=== PATIENT | male | born 1950 | race Caucasian/White ===

== ENCOUNTER 2020-04-01 08:51 | Outpatient (CLI) | payer OTHER, SELFPAY ==
[2020-04-01 09:07] LABS: Basophils Absolute Auto 0.1 K/mm3 (0.0-0.1); Eosinophils Absolute Auto 0.2 K/mm3 (0-0.3); Eosinophils Percent Auto 3.4 % (0-4.4); Hematocrit 44.3 % (42.0-52.0); Hemoglobin 14.9 g/dL (14.0-18.0); Immature Granulocyte Absolute 0.02 K/mm3 (0.00-0.031); Immature Granulocyte Percent A 0.3 % (0-0.5); Lymphocytes Absolute Auto 2.17 K/mm3 (0.9-3.2); Lymphocytes Percent Auto 30.8 % (18.3-44.2); Mean Corpuscular HGB Conc 33.6 g/dl (32-36); Mean Corpuscular Hemoglobin 33.4 pg (26-34); Mean Corpuscular Volume 99.3 fl (80-100); Mean Platelet Volume 9.7 fl (7.4-10.4); Monocytes Absolute Auto 0.8 K/mm3 (0.1-0.6); Monocytes Percent Auto 11.9 % (2.6-8.5); Neutrophils Absolute Auto 3.7 K/mm3 (1.3-6.7); Neutrophils Percent Auto 52.6 % (45.5-73.1); Platelet Count Result 171 k/mm3 (150-375); Red Blood Count 4.46 M/mm3 (4.6-6.20); Red Cell Distribution Width 13.6 % (11.5-14.5)
[2020-04-01 09:14] LABS: Add Urine Microscopic? NO; Appearance Urine Clear (Clear); Bilirubin Urine Negative (Negative); Blood Urine Negative (Negative); Color Urine Yellow (Yellow); Glucose Urine UA Negative (Negative); Ketones Urine Negative (Negative); Leukocyte Esterase Ur Negative LEU/UL (NEGATIVE); Nitrate Urine Negative (Negative); Protein Urine Negative (Negative); RBC Urine 0-2 /hpf (0-2); Urobilinogen Urine Negative mg/dL (<2.0); WBC Urine 0-3 /hpf (0-3)
[2020-04-01 09:21] LABS: Alanine Aminotransferase 18 U/L (4-50); Albumin Level 4.2 g/dL (3.5-5.1); Alkaline Phosphatase 80 U/L (38-126); Anion Gap 7 mmol/L (8-16); Aspartate Amino Transferase 25 U/L (17-59); Bilirubin,Total 0.5 mg/dL (0.2-1.3); Blood Urea Nitrogen 13 mg/dL (9-20); Calcium 8.9 mg/dL (8.4-10.2); Carbon Dioxide 28 mmol/L (22-30); Chloride 102 mmol/L (98-107); Estimated Glomerular Filt Rate > 60; Glucose 100 mg/dL (75-110); Sodium 137 mmol/L (137-145)
[2020-04-01 09:51] LABS: Prostate Specific Antigen 3.4 ng/mL (< OR = 4.0)
== END 2020-04-01 08:52 | disposition home or self-care (01) ==
PROVIDERS: PCP Internal Medicine; Visit Provider Internal Medicine
DX: Z00.00 Encounter for general adult medical examination without abnormal findings (principal); I48.0 Paroxysmal atrial fibrillation; Z72.0 Tobacco use; F10.10 Alcohol abuse, uncomplicated; Z85.51 Personal history of malignant neoplasm of bladder; Z12.5 Encounter for screening for malignant neoplasm of prostate
CPT/HCPCS: 36415; 80053; 81003; 84153; 84443; 85025; G0103

== ENCOUNTER 2020-09-28 17:30 | Emergency (ER) | payer OTHER, SELFPAY ==
--- NOTE | ~2020-09-28 | CT_ITS ---
EXAMINATION: CT abdomen pelvis w con EXAM DATE: 09/28/2020 18:32 INDICATION: Lower abdominal pain TECHNIQUE: Spiral CT of the abdomen and pelvis was performed without contrast. Axial, coronal and s agittal images were reviewed. The dose-length product (DLP) for this examination was 276.67 mGy-cm. The exposure was tailored according to patient size (auto mA exposure control), and iterative recons truction (ASIR) was used as additional dose reduction technique. Comparison is made to prior examinat ion from 08/24/2019. FINDINGS: Patients lower abdominal fusiform abdominal aortic aneurysm has increased in size from 4.2 cm one year ago to 4.9 cm today, and there is hazy fat stranding anterior to this. There is a small d ensity, could be blush of contrast within this hazy fat stranding measuring 5 mm (this has been indic ated on axial image 88), possible small amount of extravasation. Overall appearance is concerning for early or impending rupture. The origin of the CARLYN which was near this is no longer well identified o r enhancing for a couple of centimeters. I discussed these findings with Tish Delcid MD at 09/28/19 21 18:40 BARK PRESS OPERATOR. Severe bilateral iliac ectasia. The liver, spleen, adrenal glands and pancreas are unremarkable. Gal lbladder is unremarkable. No biliary obstruction. Portal and splenic veins are patent. Kidneys enh ance symmetrically. There is no hydronephrosis. Mild prostatomegaly. The bladder is unremarkable. There is no retroperitoneal or pelvic lymphadenopathy. Small umbilical fat-containing hernia. The appendix is normal. There is mild sigmoid colonic diverticulosis. There is no adjacent inflammat ory change to suggest diverticulitis. The stomach and small bowel are unremarkable. There is expecte d amount of colonic stool. No free intraperitoneal gas. The heart is normal in size. There are n o pericardial or pleural effusions. The lung bases are unremarkable. Findings consistent with chron ic right hip avascular necrosis, without collapse of the femoral head, unchanged compared to prior st udy. IMPRESSION: 1. Infrarenal 4.9 cm infrarenal abdominal aortic aneurysm with interval increase in size, and other findings concerning for early or impending rupture. 2. Origin of CARLYN poorly enhancing, distinguished from fat stranding at its origin. 3. Moderate sigmoid diverticulosis. 4. Right hip osteonecrosis. Reviewed, dictated and finalized at location A. PRESS OPERATOR IMPRESSION: 1. Infrarenal 4.9 cm infrarenal abdominal aortic aneurysm with interval increa se in size, and other findings concerning for early or impending rupture. 2. Origin of CARLYN poorly enhancing, distinguished from fat stranding at its sumeet gin. 3. Moderate sigmoid diverticulosis. 4. Right hip osteonecrosis.
[2020-09-28 17:32] VITALS: BP 124/84; PULSE 93; RESP 18; TEMP 36.9; O2SAT 100
[2020-09-28 17:49] LABS: Basophils Absolute Auto 0.1 K/mm3 (0.0-0.1); Basophils Percent Auto 0.4 % (0.2-1.2); Eosinophils Absolute Auto 0.1 K/mm3 (0-0.3); Eosinophils Percent Auto 1.2 % (0-4.4); Hematocrit 51.2 % (42.0-52.0); Hemoglobin 16.7 g/dL (14.0-18.0); Immature Granulocyte Absolute 0.04 K/mm3 (0.00-0.031); Immature Granulocyte Percent A 0.3 % (0-0.5); Lymphocytes Absolute Auto 2.33 K/mm3 (0.9-3.2); Lymphocytes Percent Auto 19.4 % (18.3-44.2); Mean Corpuscular HGB Conc 32.6 g/dl (32-36); Mean Corpuscular Hemoglobin 32.6 pg (26-34); Mean Platelet Volume 9.9 fl (7.4-10.4); Monocytes Absolute Auto 1.4 K/mm3 (0.1-0.6); Monocytes Percent Auto 11.8 % (2.6-8.5); Neutrophils Percent Auto 66.9 % (45.5-73.1); Platelet Count Result 184 k/mm3 (150-375); Red Blood Count 5.12 M/mm3 (4.6-6.20); Red Cell Distribution Width 13.2 % (11.5-14.5)
[2020-09-28 18:01] LABS: Alanine Aminotransferase 18 U/L (4-50); Albumin Level 4.8 g/dL (3.5-5.1); Alkaline Phosphatase 90 U/L (38-126); Anion Gap 6 mmol/L (8-16); Aspartate Amino Transferase 26 U/L (17-59); Bilirubin,Total 0.8 mg/dL (0.2-1.3); Blood Urea Nitrogen 15 mg/dL (9-20); Calcium 9.6 mg/dL (8.4-10.2); Carbon Dioxide 33 mmol/L (22-30); Chloride 99 mmol/L (98-107); Estimated CRCL calculation 77 ml/min; Estimated Glomerular Filt Rate > 60; Glucose 106 mg/dL (75-110); Lipase 41 U/L (23-300); Potassium 3.9 mmol/L (3.4-5.0); Sodium 138 mmol/L (137-145)
[2020-09-28 18:01] LABS: Add Urine Microscopic? YES; Appearance Urine Clear (Clear); Bilirubin Urine Negative (Negative); Blood Urine Negative (Negative); Color Urine Yellow (Yellow); Glucose Urine UA Negative (Negative); Ketones Urine Negative (Negative); Leukocyte Esterase Ur Negative LEU/UL (Negative); Mucus Urine Few /lpf; Nitrate Urine Negative (Negative); Protein Urine 1+ mg/dL (Negative); Specific Grav Ur 1.016 (1.001-1.035); WBC Urine 0-3 /hpf
[2020-09-28] MEDS: ONDANSETRON INJ 4 MG/2 ML VIAL IV PUSH (18:55)
[2020-09-28 18:56] VITALS: BP 119/96; PULSE 90; RESP 20; O2SAT 96
[2020-09-28] MEDS: MORPHINE SULFATE (*CRX) 4 MG/ML INJ IV PUSH (18:56)
--- NOTE | 2020-09-28 19:12 | ED.ABDPAIN ---
HPI - Abdominal Pain General Chief Complaint: Abdominal Pain Stated Complaint: abd pain Time Seen by Provider: 09/28/20 17:49 Source: patient and family Mode of arrival: ambulatory Limitations: no limitations History of Present Illness HPI narrative: Patient is 70 years old white male presents with lower abdominal pain mainly at the left side started over 24 hours ago, constant, associated with intermittent nausea, denies any aggravating or relieving factors or radiation. Patient denies any fever, chills, vomiting, diarrhea, constipation, urinary symptoms, chest pain or back pain. History of hypertension, atrial fibrillation on Xarelto. Patient is a smoker and drinks daily. History of abdominal hernia repair years ago. Related Data Home Medications Medication Instructions Recorded Confirmed fluticasone propionate INTRANASAL 08/24/19 Allergies Allergy/AdvReac Type Severity Reaction Status Date / Time No Known Allergies Allergy Verified 04/01/20 07:59 Review of Systems Review of Systems: Narrative: CONSTITUTIONAL: Denies fever, chills, or sweats. EYES: Denies visual changes, redness, or discharge. ENT: Denies rhinorrhea, congestion, sore throat, or otalgia. CARDIOVASCULAR: Denies chest pain, palpitations, or edema. RESPIRATORY: Denies cough or dyspnea. GASTROINTESTINAL: Denies abdominal pain, nausea, vomiting, or diarrhea. GENITOURINARY: Denies dysuria or hematuria. SKIN: Denies rash or itching. MUSCULOSKELETAL: Denies back pain, joint pain, or myalgia. NEUROLOGIC: Denies headache, numbness, or weakness. PSYCHIATRIC: Denies anxiety or depression. [facility] Past Medical History Medical History AAA (abdominal aortic aneurysm) Atrial fibrillation Bladder cancer Hypertension Surgical History Surgical History History of cystoscopy Family History Family History Father Family history of malignant neoplasm Social History Social History Smoking packs per day: 1 Smoking cigarettes per day: 20.0 Smoking status: Current every day smoker Tobacco type: cigarettes Alcohol intake: current Gender identity (if verbalized by the patient): Male Exam Narrative: Exam Narrative: General appearance: Well-developed, well-nourished Skin: Normal color Head: Normocephalic, nontraumatic Eyes: Clear conjunctiva ENT: Oropharynx normal, ears normal, nose normal Neck: Supple, nontender Chest and respiratory: Airway patent, no respiratory distress, no accessory muscle use Heart: Regular rate/rhythm Abdomen: Soft, mild tenderness left lower quadrant with deep palpation, no guarding or rebound, no organomegaly, quiet bowel sounds Vascular: Normal peripheral pulses, normal capillary refill. Musculoskeletal: Normal range of motion, nontender back Neurologic: Alert and oriented ?3, ASSISTANT TO THE PRESIDENT is normal as tested, no gross motor deficit Course Course Emergency Course: Stable Consultations Consultation #1: Dr. Langley, vascular surgeon at [facility] accepted transfer to the ED. Date: 09/28/20 Time: 19:43 Consultation #2: Dr. Weston, emergency room physician at [facility], accepted transfer to the ED Date: 09/28/20 Time: 19:43 Vital Signs Vital signs: Vital Signs Temperature 36.9 C 09/28/20 17:32 Pulse Rate 93 09/28/20 17:32 Respiratory Rate 18 09/28/20 17:32 Blood Pressure 124/84 09/28/20 17:32 Pulse Oximetry 100 09/28/20 17:32 Temperature 36.9 C 09/28/20 17:32 Pulse Rate 90 09/28/20 18:56 Respiratory Rate
[2020-09-28 20:11] VITALS: BP 102/71; PULSE 90; RESP 14; TEMP 36.7; O2SAT 96
== END 2020-09-28 20:14 | disposition short-term general hospital (02) ==
PROVIDERS: Emergency Provider Emergency Medicine; PCP Internal Medicine
DX: I71.4 Abdominal aortic aneurysm, without rupture (principal); I48.91 Unspecified atrial fibrillation; F17.210 Nicotine dependence, cigarettes, uncomplicated; Z79.01 Long term (current) use of anticoagulants; I10 Essential (primary) hypertension; Z85.51 Personal history of malignant neoplasm of bladder; M87.9 Osteonecrosis, unspecified; K57.30 Diverticulosis of large intestine without perforation or abscess without bleeding
CPT/HCPCS: 36415; 74177; 80053; 81001; 83690; 85025; 96374; 96375; 99291; J2270; J2405; Q9967

== ENCOUNTER → 2021-04-02 12:44 | Outpatient (CLI) | payer OTHER, SELFPAY ==
--- NOTE | ~2021-04-02 | MR_ITS ---
EXAMINATION: MR pelvis wo/w con DATE: 04/02/2021 14:38 INDICATION: Malignant neoplasm of the prostate TECHNIQUE: Magnetic resonance imaging (MRI) of the pelvis was performed without and with 15 mL Multih ance intravenous contrast. Fullfield sequences of the pelvis included axial and coronal T2-weighted S S FSE, axial, sagittal and coronal 2D FIESTA, axial 2D FIESTA FS, axial SSFSE-IR TIFFANY, axial dual-echo T1-weighted FSPGR, axial and coronal T1 weighted LAVA, 3D axial T2 Cube, axial diffusion-weighted SE with apparent diffusion coefficient (ADC) maps. Postcontrast sequences included a time course axial T1-weighted LAVA and sagittal and coronal T1-weighted LAVA. COMPARISON: 09/28/2020 FINDINGS: Prostate measures 5.2 x 3.2 cm in maximal transaxial dimensions and 2.6 cm in craniocaudal height. Ho mogeneous T2 hyperintense likely hydrogel positioned between the prostate and anterior wall of the re ctum and measuring 5.5 cm craniocaudally and 3.0 cm Left to right and 1.2 cm in maximal AP thickness. Bladder is normal with no wall thickening. Visualized bowels are unremarkable with no obstruction. F usiform infrarenal abdominal aortic aneurysm measuring up to 4.3 x 4.2 cm with interval aortobiiliac stent grafting. No pathologically enlarged pelvic or inguinal lymphadenopathy. Minimal ascites in the deep pelvis. Chronic avascular necrosis at the bilateral femoral heads more extensive on the right. Small right hip joint effusion. Moderate lumbar spondylosis. No bone lesions suspicious for metastati c disease. IMPRESSION: 1. No evident metastatic disease in the pelvis or lower abdomen. 2. Interval aortobiiliac stenting of a now 4.3 x 4.2 cm infrarenal abdominal aortic aneurysm. 3. Minimal ascites in the deep pelvis. 4. Avascular necrosis at the bilateral hips, right more extensive than left, with small right hip izaiah nt effusion. Reviewed, dictated and finalized at location B. IMPRESSION: 1. No evident metastatic disease in the pelvis or lower abdomen. 2. Interval aortobiiliac stenting of a now 4.3 x 4.2 cm infrarenal abdominal ao rtic aneurysm. 3. Minimal ascites in the deep pelvis. 4. Avascular necrosis at the bilateral hips, right more extensive than left, wi th small right hip joint effusion.
[2021-04-02 13:44] LABS: Estimated Glomerular Filt Rate > 60
== END ==
PROVIDERS: Visit Provider Radiology Radiation Oncology
DX: C61 Malignant neoplasm of prostate (principal)
CPT/HCPCS: 72197; A9577

== ENCOUNTER 2021-09-08 09:07 | Outpatient (CLI) | payer OTHER, SELFPAY ==
--- NOTE | ~2021-09-08 | CT_ITS ---
EXAMINATION: CT lung screening DATE: 09/08/2021 09:23 INDICATION: Z72.0 - Tobacco use TECHNIQUE: Computed tomography (CT) of the chest was performed without intravenous contrast. Addition al 3D reconstructions utilizing coronal maximum intensity projection (MIP) were performed. Automated exposure control and iterative reconstruction technique were employed. The dose-length product was 92 .31 mGy-cm. COMPARISON: 08/24/2019 FINDINGS: Mild emphysema. No suspicious pulmonary nodules, pneumonia, pulmonary edema or other pulmonary infilt rates. No pleural effusion. Heart size is normal. Atherosclerotic coronary artery calcification is. T here also atherosclerotic calcific lesion along the normal caliber thoracic aorta. No pathologically enlarged thoracic lymphadenopathy. Severe disc height loss with degenerative endplate changes at C7-T 1. Mild upper thoracic dextrocurvature. 4 mm retrolisthesis L1 on L2. Prominent Schmorl's node along the inferior endplate of L2. IMPRESSION: 1. Lung-RADS category 1: Negative. Continue annual screening with noncontrast low-dose chest CT in 12 months. Reviewed, dictated and finalized at location A. TRONICS TESTER IMPRESSION: 1. Lung-RADS category 1: Negative. Continue annual screening with noncontrast l ow-dose chest CT in 12 months.
== END 2021-09-08 09:08 | disposition home or self-care (01) ==
PROVIDERS: PCP Internal Medicine; Visit Provider Internal Medicine
DX: Z12.2 Encounter for screening for malignant neoplasm of respiratory organs (principal); Z87.891 Personal history of nicotine dependence
CPT/HCPCS: 71271

== ENCOUNTER → 2021-09-20 09:40 | Outpatient (CLI) | payer OTHER, SELFPAY ==
--- NOTE | ~2021-09-20 | XR_ITS ---
EXAMINATION: XR hip BI 2V w AP pelvis DATE: 09/20/2021 10:12 INDICATION: Pain in unspecified hip. TECHNIQUE: An anteroposterior view of the pelvis and 2 views of each hip were obtained. COMPARISON: CT abdomen and pelvis 09/28/2020 FINDINGS: There is lumbar levocurvature and severe spondylosis. No fracture. There is sclerosis in th e femoral heads, right worse than left, consistent with osteonecrosis. There is mild osteoarthritis o f the hips. There is a stent graft in abdominal aorta and the common iliac arteries. Surgical clips o verlie the abdomen and pelvis. IMPRESSION: 1. Osteonecrosis of the femoral heads, right worse than left. 2. Mild osteoarthritis of the hips. Reviewed, dictated and finalized at location E. NICAL SUPPORT DIRECTOR
== END ==
PROVIDERS: PCP Internal Medicine; Visit Provider Internal Medicine
DX: M16.0 Bilateral primary osteoarthritis of hip (principal)
CPT/HCPCS: 73521

== ENCOUNTER → 2021-11-13 16:46 | Outpatient (CLI) | payer OTHER, SELFPAY ==
--- NOTE | ~2021-11-13 | MR_ITS ---
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 Sequences included full-field axial PD-weighted FS FSE and T1-weighted FSE, coronal of the pelvi s with PD-weighted FS FSE, T2-weighted FSE and T1-weighted FSE, small field of view of the right hip with axial PD-weighted FS FSE, sagittal PD-weighted FS FSE, coronal PD-weighted FS FSE and coronal T2 weighted FSE. Additional radial T1-weighted FGR oriented orthogonal to the acetabular rim were obt ained for evaluation of the labrum. COMPARISON: None FINDINGS: Bones/labrum/cartilage: Alignment is normal. No fracture or pathologic marrow replacing process. Large region of osteonecrosi s along the superior and anterosuperior aspect of the right femoral head which measures approximately 2.7 cm medial to lateral and 4 cm anterior posteriorly. No evident collapse of the articular surface or linear fluid signal intensity along the margins of the lesion to suggest an unstable fragment. Mi ld osteoarthritis at the right hip with mild nonuniform joint space narrowing with partial thickness cartilage loss with prominent posteriorly and anterosuperiorly. The anterior to posterior superior la buddy is diminutive in places partially replaced with marginal osteophytes along the acetabular rim. S mall shallow tear at the base of the superolateral labrum. On the larger field of view images a small region of osteonecrosis is seen along the anteromedial aspect of the left femoral head. Fluid: Minimal right hip joint effusion. Physiologic amount fluid in the left hip joint. No bursitis or othe r abnormal fluid collections. Soft tissues: No asymmetric muscular atrophy or abnormal muscle signal in the pelvis and visualized proximal thighs . The iliopsoas, gluteal and proximal hamstring tendons are normal. Small fat-containing left inguina l hernia. Limited evaluation of visceral organs of the pelvis is unremarkable. No pathologically enl arged pelvic/inguinal lymphadenopathy. IMPRESSION: 1. Relatively large region of osteonecrosis involving the superior and anterosuperior aspect of the r ight femoral head with significant smaller region of osteonecrosis at the anteromedial left femoral h ead. 2. Mild right hip osteoarthritis with small labral tear and more diffuse chronic labral degeneration. 3. Small fat-containing left inguinal hernia. Reviewed, dictated and finalized at location B. IMPRESSION: 1. Relatively large region of osteonecrosis involving the superior and anterosu perior aspect of the right femoral head with significant smaller region of oste onecrosis at the anteromedial left femoral head. 2. Mild right hip osteoarthritis with small labral tear and more diffuse chroni c labral degeneration. 3. Small fat-containing left inguinal hernia.
== END ==
PROVIDERS: PCP Internal Medicine; Visit Provider Orthopaedic Surgery
DX: M87.051 Idiopathic aseptic necrosis of right femur (principal); K44.9 Diaphragmatic hernia without obstruction or gangrene; M16.11 Unilateral primary osteoarthritis, right hip
CPT/HCPCS: 73721

== ENCOUNTER → 2022-06-22 09:28 | Outpatient (CLI) | payer OTHER, SELFPAY ==
--- NOTE | ~2022-06-22 | CT_ITS ---
EXAMINATION: CTA abdomen DATE: 06/22/2022 09:59 INDICATION: Abdominal aortic aneurysm status post endoluminal stent repair TECHNIQUE: Computed tomographic angiography (CTA) of the abdomen was performed with 100 mL Omnipaque- 350 intravenous contrast. Maximum intensity projection 3D-reconstructions of the aorta and other darnell teddy were constructed by the technologist on a separate workstation. The dose-length product (DLP) wa s 414.47 mGy-cm. Automated exposure control and iterative reconstruction technique were employed. COMPARISON: None. FINDINGS: The lung bases are clear. The heart size is normal. Cysts of the liver measure up to 4 mm. The spleen, pancreas, gallbladder, and adrenal glands are normal. The kidneys are unremarkable. No pa thologically enlarged abdominal lymph nodes are identified. There is no free intraperitoneal gas or e vidence of bowel obstruction. There is severe lumbar spondylosis. There is mild stenosis at the origin of the celiac axis. Calcified atherosclerosis is present at the origin of the superior mesenteric artery. The inferior mesenteric artery is unremarkable. There is a 3.4 cm fusiform infrarenal abdominal aortic aneurysm status post aortobiiliac endoluminal stent graft repair. There are single renal arteries bilaterally. There is severe stenosis of the bilateral inter nal iliac arteries. IMPRESSION: 1. 3.4 cm infrarenal abdominal aortic aneurysm status post aortobiiliac endoluminal stent graft love álvarez Reviewed, dictated and finalized at location F. ERIOLOGIST SOIL IMPRESSION: 1. 3.4 cm infrarenal abdominal aortic aneurysm status post aortobiiliac endolum inal stent graft repair.
[2022-06-22 09:44] LABS: Estimated Glomerular Filt Rate > 60
== END ==
PROVIDERS: PCP Internal Medicine; Visit Provider Internal Medicine Cardiovascular Disease
DX: I71.43 Infrarenal abdominal aortic aneurysm, without rupture (principal)
CPT/HCPCS: 74175; Q9967

== ENCOUNTER 2023-01-18 15:22 | Outpatient (CLI) | payer OTHER, SELFPAY ==
--- NOTE | ~2023-01-18 | US_ITS ---
US scrotum doppler INDICATION: Testicular pain TECHNIQUE: Testicular sonogram utilizing grayscale and color Doppler FINDINGS: The testes are normal in size and appearance. No focal lesions are seen. The right testes measures 3.6 x 1.9 x 2.1 cm centimeters, and the left testis measures 3.9 x 1.3 x 2.4 cm cm. There is normal vascular flow to both testes. There is a left varicocele. Small right hydrocele. There is a right epididymal cyst measuring 5 mm. IMPRESSION: 1. Left varicocele. 2: Small right hydrocele. 3: Right epididymal cyst measuring 5 mm. Reviewed, dictated and finalized at location L.
== END 2023-01-18 15:23 | disposition home or self-care (01) ==
PROVIDERS: PCP Family Medicine; Visit Provider Nurse Practitioner Family
DX: N50.819 Testicular pain, unspecified (principal); I86.1 Scrotal varices; N43.3 Hydrocele, unspecified; N50.3 Cyst of epididymis
CPT/HCPCS: 76870; 93976

== ENCOUNTER 2024-05-02 09:56 | Outpatient (CLI) | payer OTHER, SELFPAY ==
--- NOTE | ~2024-05-02 | MR_ITS ---
MRI of the lumbar spine Clinical History: Spondylosis Technique: Axial T2-weighted images, and sagittal T1-weighted, T2-weighted, and and T2 fat-sat images were acquired. Findings: No acute fracture seen. There is minimal grade 1 retrolisthesis of L2 over L3. No suspiciou s bone marrow signal abnormality seen. At L1-L2, there is moderate degenerative disc narrowing. There is minimal disc bulge with moderate fa cet arthropathy. No central canal stenosis. There is minimal right neural foraminal narrowing. Left n eural foramen preserved. At L2-L3, there is moderate degenerative disc narrowing. There is moderate facet arthropathy. No cent ral canal stenosis. There is moderate to advanced right neural foraminal narrowing, and moderate left neural foraminal narrowing. At L3-L4, there is moderate degenerative disc narrowing. There is minimal disc bulge with moderate fa cet arthropathy. No central canal stenosis. There is severe bilateral neural foraminal, right. At L4-L5, there is mild disc bulge with advanced facet arthropathy. No central canal stenosis. There is severe left neural foraminal narrowing, and minimal right neural foraminal narrowing. At L5-S1, there is advanced degenerative disc narrowing. There is minimal disc bulge with mild facet arthropathy. No central canal stenosis. There is moderate to advanced left neural foraminal narrowing , advanced right neural foraminal narrowing. Paravertebral soft tissues are unremarkable. Impression: Advanced degenerative spondylosis, with multilevel significant neural foraminal narrowing, as detaile d above. Minimal grade 1 retrolisthesis of L2 over L3. Reviewed, dictated and finalized at [facility]. Impression: Advanced degenerative spondylosis, with multilevel significant neural foraminal narrowing, as detailed above. Minimal grade 1 retrolisthesis of L2 over L3.
== END 2024-05-02 09:57 | disposition home or self-care (01) ==
PROVIDERS: PCP Neurological Surgery; Visit Provider Nurse Practitioner Family
DX: M47.896 Other spondylosis, lumbar region (principal)
CPT/HCPCS: 72148

== ENCOUNTER 2024-07-27 11:35 | Outpatient (CLI) | payer OTHER, SELFPAY ==
--- NOTE | ~2024-07-27 | XR_ITS ---
AP and lateral views of the right hip Clinical history: Pain Findings: No acute fracture or dislocation is seen.] Upper arthroplasty in place. Soft tissues are un remarkable. Impression: No acute abnormality. Right hip arthroplasty. Reviewed, dictated and finalized at location M. EMIC AFFAIRS ASSISTANT Impression: No acute abnormality. Right hip arthroplasty.
== END 2024-07-27 11:36 | disposition home or self-care (01) ==
LOC: MICIMG 11:36
PROVIDERS: PCP Nurse Practitioner Family; Visit Provider Pain Medicine Pain Medicine
DX: M25.551 Pain in right hip (principal); Z96.641 Presence of right artificial hip joint
CPT/HCPCS: 73502

== ENCOUNTER 2025-02-02 10:02 | Outpatient (CLI) | payer OTHER, SELFPAY ==
--- NOTE | ~2025-02-02 | CT_ITS ---
CT Scan of the Chest without Contrast: Clinical Indication: Lung cancer screening, nicotine dependence Technique: Contiguous sections were acquired throughout the chest without intravenous contrast. Dose reduction technique was used on this scan by utilizing automated exposure control and iterative recon struction technique. The dose-length product (DLP) was 139.50 mGy-cm. COMPARISON: 09/08/2021 Findings: There is no evidence of any significant mediastinal, hilar or axillary lymphadenopathy. There are ext ensive atherosclerotic calcifications of the aorta and coronary arteries. There is no evidence of pleural or pericardial effusion. The lungs are clear. No pulmonary nodules or infiltrates are noted. Mild emphysema present. There is linear scarring at the left lung base. Images through the upper abdomen reveal no abnormalities. Impression: Lung RADS 1: Negative. 12 month follow-up screening CT advised. Reviewed, dictated and finalized at [facility]. Impression: Lung RADS 1: Negative. 12 month follow-up screening CT advised.
== END 2025-02-02 10:03 | disposition home or self-care (01) ==
PROVIDERS: PCP Nurse Practitioner Family; Visit Provider Nurse Practitioner Family
DX: Z12.2 Encounter for screening for malignant neoplasm of respiratory organs (principal); J44.9 Chronic obstructive pulmonary disease, unspecified; Z87.891 Personal history of nicotine dependence
CPT/HCPCS: 71271